=== PATIENT | female | born 1975 | race Caucasian/White ===

== ENCOUNTER 2021-06-23 09:13 | Day surgery (SDC) | payer BC ==
[~2021-06-23] VITALS: Ht 157.5 cm; Wt 78.2 kg
[2021-06-23] MEDS ORDERED: HYDACE10B (09:46)
[2021-06-23] MEDS ORDERED: NUCYNTA100 MG (09:47)
[2021-06-23] MEDS ORDERED: CETI5 (09:47)
[2021-06-23] MEDS ORDERED: Ventolin5 MG/1 ML (09:47)
[2021-06-23] MEDS ORDERED: BUSP10 (09:48)
[2021-06-23] MEDS ORDERED: ERGO400 (09:48)
[2021-06-23] MEDS ORDERED: CLOBET30L (09:49)
[2021-06-23] MEDS ORDERED: FOLI1 (09:49)
[2021-06-23] MEDS ORDERED: PRED1 (09:50)
== END 2021-06-23 11:25 | disposition home or self-care (01) ==
LOC: ORSCSDS 09:13
PROVIDERS: Internal Medicine Gastroenterology
PROC: 0DBN8ZX Excision of Sigmoid Colon, Via Natural or Artificial Opening Endoscopic, Diagnostic (ICD-10-PCS; principal; 2021-06-23 10:45)
PROC: 0DBE8ZX Excision of Large Intestine, Via Natural or Artificial Opening Endoscopic, Diagnostic (ICD-10-PCS; principal; 2021-06-23 10:45)
DX: K62.5 Hemorrhage of anus and rectum (principal); K63.5 Polyp of colon; R19.4 Change in bowel habit; Z87.891 Personal history of nicotine dependence; Z83.71 Family history of colonic polyps; Z79.899 Other long term (current) drug therapy; K57.30 Diverticulosis of large intestine without perforation or abscess without bleeding
CPT/HCPCS: 88305; J2704; J7120

== ENCOUNTER → 2024-03-29 | Outpatient (CLI) | payer BC ==
[~2024-03-29] MED LIST: BUSP10; CETI5; CLOBET30L; ERGO400; FOLI1; HYDACE10B; NUCYNTA100 MG; PRED1; Ventolin5 MG/1 ML
[2024-03-29 10:43] LABS: Source, Urine Voided
[2024-03-29 11:43] LABS: Appearance, Urine Clear (Clear); Bilirubin, Urine Neg (Neg); Blood, Urine Neg (Neg); Color, Urine Yellow (P-Yellow); Glucose Qualitative, Urine Neg (Neg); Ketones, Urine Neg (Neg); Leukocyte Esterase, Urine Neg (Neg); Nitrite, Urine Neg (Neg); Protein, Urine 1+ (Neg); Specific Gravity, Urine 1.025 (1.003-1.022); Urobilinogen, Urine NORM (Normal)
[2024-04-04 10:59] LABS: HPV HIGH RISK BY TMA Not Detected; HPV SOURCE Cervical/Vag
== END | disposition home or self-care (01) ==
LOC: LAB 10:40 → LAB SHORT 10:40
PROVIDERS: Obstetrics & Gynecology
DX: Z12.4 Encounter for screening for malignant neoplasm of cervix (principal); N39.46 Mixed incontinence
CPT/HCPCS: 87624; G0123

== ENCOUNTER → 2024-07-18 | Outpatient (CLI) | payer BC ==
[~2024-07-18] MED LIST changes: +CETI5 PO; -HYDACE10B; +NUCYNTA100 MG PO; +Norco 7.5-3251 EACH PO; +SERT25 PO
[2024-07-18 14:48] LABS: Source, Urine Clean Catch
[2024-07-18 17:35] LABS: Appearance, Urine Turbid (Clear); Bilirubin, Urine Neg (Neg); Blood, Urine Neg (Neg); Color, Urine Yellow (P-Yellow); Glucose Qualitative, Urine Neg (Neg); Ketones, Urine Neg (Neg); Leukocyte Esterase, Urine Neg (Neg); Nitrite, Urine Neg (Neg); Protein, Urine Neg (Neg); Specific Gravity, Urine 1.025 (1.003-1.022); Urobilinogen, Urine NORM (Normal)
[2024-07-18 17:45] LABS: Amorphous Heavy (0-Heavy); Bacteria Few /hpf; Red Blood Cells, Urine 0-2 /hpf (0-2); Squamous Epithelial Cells Few /hpf (Few); White Blood Cells, Urine 0-2 /hpf (0-5)
== END ==
LOC: LAB 14:44 → LAB SHORT 14:44
PROVIDERS: Obstetrics & Gynecology
DX: Z01.812 Encounter for preprocedural laboratory examination (principal)
CPT/HCPCS: 81001

== ENCOUNTER 2024-07-29 06:00 | Day surgery (SDC) | payer BC ==
[~2024-07-29] VITALS: Ht 154.9 cm; Wt 82.4 kg
[2024-07-29] VITALS (15 sets, daily range): BP systolic 93–128; BP diastolic 52–86
[~2024-07-29 06:00] MED LIST changes: -CETI5 PO; +ZYRTEC-D ER 51 EACH PO
[2024-07-29] MEDS ORDERED: CeFAZolin Sodium 2,000 MG in NS 100 ML IV SCH (06:20)
[2024-07-29] MEDS ORDERED: Lactated Ringer's 1,000 ML IV SCH ×2 (06:20→11:45)
[2024-07-29] MEDS ORDERED: Dexmedetomidine HCL 200 MCG / 2 ML ONE (06:47)
[2024-07-29] MEDS ORDERED: Lidocaine HCl 4% 5 ML SDA ONE (06:47)
[2024-07-29] MEDS ORDERED: Dexamethasone Sod Phos 10 MG/ML 1ML VIAL ONE (06:57)
[2024-07-29] MEDS ORDERED: Ondansetron HCl 2 MG / ML 2ML Vial ONE (06:57)
[2024-07-29] MEDS ORDERED: Metoclopramide HCl 5MG / ML 2ML Vial ONE (06:57)
[2024-07-29] MEDS ORDERED: DiphenhydrAMINE HCl 50 MG/ML 1ML Vial ONE (06:58)
[2024-07-29] MEDS ORDERED: Rocuronium Bromide 10 MG/ML 5ML Injection IV ONE ×2 (06:58→09:11)
[2024-07-29] MEDS ORDERED: Ketorolac Tromethamine 30mg Vial ONE (06:58)
[2024-07-29] MEDS ORDERED: HYDROmorphone HCl/Pf 1MG SYR ONE (06:58)
[2024-07-29] MEDS ORDERED: Sugammadex Sodium 200 MG/2ML SDV (100 MG/ML) ONE (06:58)
[2024-07-29] MEDS ORDERED: propofoL 150 ML IV ONE (07:00)
[2024-07-29] MEDS ORDERED: Bupivacaine 0.5% HCl 5 MG/ML 30MLVIAL ONE (07:06)
--- NOTE | 2024-07-29 07:12 | NUR ---
History, Chart, Medications and Allergies reviewed before start of procedure. Patient confirms NPO status and agrees with scheduled surgery. Patient reports Hx of tubal ligation. No HCG indicated pre-op.
[2024-07-29] MEDS ORDERED: Acetaminophen 500 MG Tab ONE (07:23)
[2024-07-29] MEDS ORDERED: Scopolamine Hydrobromide Patch TOP ONE (07:30)
[2024-07-29] MEDS ORDERED: Phenylephrine HCl 100 MCG/ML-NS 10MLSYR (1MG/10ML) ONE (07:44)
[2024-07-29] MEDS ORDERED: Lidocaine 1%-Epineph 1:100000 20 ML MDV INJ ONE (08:02)
[2024-07-29] MEDS ORDERED: FentaNYL Citrate 50 MCG/ML 2 ML Injection ONE ×2 (09:12→11:22)
[2024-07-29] MEDS ORDERED: propofoL 50 ML IV ONE (09:16)
[2024-07-29] MEDS ORDERED: propofoL 20 ML IV ONE ×4 (09:35→11:24)
--- NOTE | 2024-07-29 11:05 | NUR ---
07/29/24 1109 [address] PATEL [address] ANGUIANO HYSTERECTOMY AND A&P REPAIR, FOLLOWING DR FERNANDO SLIRAIS PROCEDURE.
[2024-07-29] MEDS ORDERED: Simethicone 80 MG Chew PO PRN (11:40)
[2024-07-29] MEDS ORDERED: Ondansetron HCl 2 MG / ML 2ML Vial IV PRN (11:40)
[2024-07-29] MEDS ORDERED: OxyCODONE HCL 5 MG TAB PO PRN (11:40)
[2024-07-29] MEDS ORDERED: Ondansetron 4 MG TAB PO PRN (11:40)
[2024-07-29] MEDS ORDERED: Metoclopramide HCl 5MG / ML 2ML Vial IV PRN (11:45)
[2024-07-29] MEDS ORDERED: Metoclopramide HCl 10 MG Tab PO PRN (11:45)
[2024-07-29] MEDS ORDERED: Morphine Sulfate 10 MG/ML 1MLSYR IV PRN (11:45)
[2024-07-29] MEDS ORDERED: FLU VACC TS2024-25(6MOS UP)/PF 45 MCG/0.5 ML SYRINGE IM SCH (11:45)
[2024-07-29] MEDS ORDERED: Ibuprofen 400 MG Tab PO PRN (11:45)
[2024-07-29] MEDS ORDERED: Acetaminophen 500 MG Tab PO PRN (11:50)
[2024-07-29] MEDS ORDERED: DiphenhydrAMINE HCL 25 MG Cap PO PRN (11:50)
[2024-07-29] MEDS ORDERED: HYDROcodone 7.5-APAP 325 TAB PO PRN (11:50)
[2024-07-29] MEDS ORDERED: Ketorolac Tromethamine 30mg Vial IV PRN (12:00)
[2024-07-29] MEDS ORDERED: ZYRTEC D PO PRN (13:40)
--- NOTE | 2024-07-29 16:31 | NUR ---
PT STATING THAT SHE WOULD LIKE TO GO HOME. DISCUSSED WITH DR FERNANDO SINCE SHE IS ON THE UNIT. REPORTED BACK TO THE PT THAT SHE HAS TO HAVE AT LEAST ONE MORE VOID AND THEN BLADDER SCAN AFTER THE VOID TO ENSURE THERE IS LESS THAN 100ML IN BLADDER AFTER VOID. PT AGREEABLE BUT REQUESTING IV TO BE REMOVED. IV REMOVED WITH TIP INTACT.
--- NOTE | 2024-07-29 16:50 | NUR ---
DR ANGUIANO CALLED AND UPDATED BY THIS RN. REPORTED THAT ALCANTARA IS OUT, PT ATTEMPTED TO VOID. BLADDER SCANNER SHOWING 0ML, SHORTLY AFTER ALCANTARA BEING REMOVED. ORDERS FROM DR ANGUIANO TO DO PRE VOID SCAN AND PT HAS TO HAVE AT LEAST 150ML IN BLADDER AND THEN AFTER VOID AND UNDER 100ML AFTER VOID IN ORDER TO DISCHARGE. PT DRINKING PO FLUIDS AND IS ANXIOUS TO GO HOME.
--- NOTE | 2024-07-29 17:31 | NUR ---
PT VOIDED AFTER 201ML BLADDER SCAN AND ONLY 10ML LEFT IN BLADDER. PT AMBULATING WELL, ALERT ORIENTED AND REPORTS THAT PAIN IS WELL CONTROLLED. PT AMBULATED OUT OF ROOM TO DISCHARGE.
[2024-07-29] MEDS ORDERED: Sertraline HCl 50 MG Tab PO SCH (18:00)
[2024-07-29] MEDS ORDERED: TAPENTADOL 100 MG PO SCH (21:00)
== END 2024-07-29 17:30 | disposition home or self-care (01) ==
LOC: ORSCMMR 06:00 → ORD 07:30 → BC 12:49 → ORSCMMR 17:30 → BC 17:30
PROVIDERS: Obstetrics & Gynecology
PROC: 0UT9FZZ Resection of Uterus, Via Natural or Artificial Opening With Percutaneous Endoscopic Assistance (ICD-10-PCS; principal; 2024-07-29 07:30)
PROC: 0TSD0ZZ Reposition Urethra, Open Approach (ICD-10-PCS; principal; 2024-07-29 07:30)
PROC: 0JQC0ZZ Repair Pelvic Region Subcutaneous Tissue and Fascia, Open Approach (ICD-10-PCS; principal; 2024-07-29 07:30)
PROC: 0UT7FZZ Resection of Bilateral Fallopian Tubes, Via Natural or Artificial Opening With Percutaneous Endoscopic Assistance (ICD-10-PCS; principal; 2024-07-29 07:30)
DX: N81.4 Uterovaginal prolapse, unspecified (principal); N39.3 Stress incontinence (female) (male); N73.6 Female pelvic peritoneal adhesions (postinfective); F17.210 Nicotine dependence, cigarettes, uncomplicated; N94.6 Dysmenorrhea, unspecified; F41.9 Anxiety disorder, unspecified; E66.9 Obesity, unspecified; Z68.34 Body mass index [BMI] 34.0-34.9, adult; M79.7 Fibromyalgia; Z79.899 Other long term (current) drug therapy
CPT/HCPCS: 86850; 86900; 86901; 88307; A9270; C1771; J0690; J1100; J1171; J1200; J1885; J2003; J2270; J2371; J2405; J2704; J2765; J3010; J7120